=== PATIENT | female | born 1950 | race Caucasian/White ===

== ENCOUNTER → 2017-08-30 | Outpatient (CLI) | payer OTHER | LOC: BMCIMAGING 14:50 | PROVIDERS: ATTEND Internal Medicine | DX: Z12.31 Encounter for screening mammogram for malignant neoplasm of breast (principal) | CPT/HCPCS: G0202 ==

== ENCOUNTER → 2018-05-05 | Outpatient (CLI) | payer OTHER, MEDICARE | LOC: BHFA 09:00 | PROVIDERS: ATTEND Internal Medicine Cardiovascular Disease | DX: I47.2 Ventricular tachycardia (principal); Z95.810 Presence of automatic (implantable) cardiac defibrillator ==

== ENCOUNTER 2018-09-06 09:51 | Day surgery (SDC) | payer OTHER, MEDICARE ==
[2018-09-06] MEDS ORDERED: DIAZEPAM 5 MG TAB PO ONE (10:07)
[2018-09-06] MEDS ORDERED: NS 1,000 ML IV ONE (10:07)
[2018-09-06] MEDS ORDERED: BACITRACIN IRRIGATION/NS 50,000 UNITS/1,000 ML BTL IRR ONE (10:07)
[2018-09-06] MEDS ORDERED: diphenhydrAMINE 25 MG CAP PO ONE (10:07)
[2018-09-06 10:32] LABS: PLATELET COUNT 306 10^3/uL (150-400)
[2018-09-06 10:44] LABS: INR 0.87 (0.83-1.16)
[2018-09-06] MEDS ORDERED: VANCOMYCIN HCL/NORMAL SALINE 250 ML IV ONE (11:00)
--- NOTE | 2018-09-06 11:14 | PDGENHP ---
History & Physical Chief Complaint: Generator change History of Present Illness: History of VT, ICD generator at end of life. Ms. Knight presents today for generator change. Relevant Physical Exam: General: A&Ox4, no apparent distress. Respiratory: CTA. Cardiac: Regular rate and rhythm. Extremities: Normal exam, pulses 2+ bilaterally, no edema Cardiorespiratory Assessment: ICD generator change today.
[2018-09-06] MEDS ORDERED: BUPIVACAINE 0.75% 10 ML SDV ONE (11:54)
[2018-09-06] MEDS ORDERED: LIDOCAINE 1% 300 MG/30 ML SDV ONE (11:54)
--- NOTE | 2018-09-06 11:58 | PDANEPAE ---
ANE Past Medical History - Cardiovascular History Hx Hypertension: Yes Hx Arrhythmias: Yes Hx Chest Pain: No Hx Coronary Artery / Peripheral Vascular Disease: No Hx CHF / Valvular Disease: No Hx Palpitations: No Cardiovascular History Comment: h/o V-fib with no etiology s/p AICD - Pulmonary History Hx COPD: No Hx Asthma/Reactive Airway Disease: No Hx Recent Upper Respiratory Infection: No Hx Oxygen in Use at Home: No Hx Sleep Apnea: No - Endocrine History Hx Diabetes: No Hypothyroid: No Hyperthyroid: No Obesity: no - Renal History Hx Renal Disorders: No - Liver History Hx Hepatic Disorders: No - Chronic Pain History Chronic Pain: No ANE Review of Systems Review of Systems: - Exercise capacity Exercise capacity: >=4 METS - Pacemaker Pacemaker Type: Permanent Pacer/Defib Pacemaker [employer]: [employer] Pacemaker Mode: DDD Date Pacemaker Last Checked: a few months ago ANE Patient History - Allergies Allergies/Adverse Reactions: amiodarone [Amiodarone] Allergy (Severe, Verified 06/13/16 14:24) Other-Enter Comments latex [Latex] Allergy (Severe, Verified 06/22/10 08:52) Dyspnea piperacillin sodium [From Zosyn] Allergy (Unknown, Unverified 09/06/18 10:05) Rash tazobactam sodium [From Zosyn] Allergy (Unknown, Unverified 09/06/18 10:05) Rash - Home Medications Home Medications: Diltiazem HCl [Cartia XT 240mg] 240 mg PO DAILY 06/13/16 [Last Taken 06/12/16] Lisinopril [Zestril 10 mg (*)] 10 mg PO DAILY 06/13/16 [Last Taken 06/12/16] - NPO status NPO Status: no food or drink >8 hours - Anes Hx Anes Hx: no prior problems - Smoking Hx Smoking Status: Never smoked ANE Labs/Vital Signs - Labs Result Diagrams: 09/06/18 10:15 09/06/18 10:15 - Vital Signs Height: 165 cm Weight: 77.1 kg ANE Physical Exam - Airway Neck exam: FROM Mallampati Score: Class 2 Mouth exam: normal dental/mouth exam - Pulmonary Pulmonary: no respiratory distress - Cardiovascular Cardiovascular: regular rate and rhythym - ASA Status ASA Status: II ANE Anesthesia Plan Anesthesia Plan: GA with mask
[2018-09-06] MEDS ORDERED: PROPOFOL/EMULSION 500 MG/50 ML BOTTLE IV ONE (12:01)
[2018-09-06] MEDS ORDERED: fentaNYL 100 MCG/2 ML INJ ONE (12:30)
[2018-09-06] MEDS ORDERED: ePHEDrine SULFATE 25 MG/5 ML SYR ONE (12:45)
[2018-09-06] MEDS ORDERED: PHENYLEPHRINE HCL 100 MCG/ML SYR ONE (12:45)
[2018-09-06] MEDS ORDERED: NALOXONE HCL 0.4 MG/ML INJ IVP PRN (13:06)
[2018-09-06] MEDS ORDERED: fentaNYL 100 MCG/2 ML INJ IVP PRN (13:06)
[2018-09-06] MEDS ORDERED: METOCLOPRAMIDE 10 MG/2 ML VIAL IVP PRN (13:06)
[2018-09-06] MEDS ORDERED: NS 500 ML IV PRN (13:06)
[2018-09-06] MEDS ORDERED: LABETALOL HCL 20 MG/4 ML INJ IVP PRN (13:06)
[2018-09-06] MEDS ORDERED: MEPERIDINE 25 MG/0.5 ML AMP IVP PRN (13:06)
[2018-09-06] MEDS ORDERED: ALBUTEROL 3 ML DEYVIAL IH PRN (13:06)
[2018-09-06] MEDS ORDERED: PROMETHAZINE HCL 25 MG/ML INJ IVP PRN (13:06)
[2018-09-06] MEDS ORDERED: oxyCODONE IR 5 MG TAB PO PRN (13:06)
[2018-09-06] MEDS ORDERED: ACETAMINOPHEN 500 MG TAB PO PRN (13:06)
[2018-09-06] MEDS ORDERED: ONDANSETRON 4 MG/2 ML VIAL IVP PRN (13:06)
[2018-09-06] MEDS ORDERED: DEXAMETHASONE 4 MG/ML VIAL IVP PRN (13:06)
[2018-09-06] MEDS ORDERED: HYDROmorphONE/DILAUDID 2 MG/ML INJ IVP PRN (13:06)
[2018-09-06] MEDS ORDERED: PROPOFOL 200 MG/20 ML VIAL ONE (13:07)
--- NOTE | 2018-09-06 13:22 | EPPROC ---
Electrophysiology Procedure Note: PROCEDURE PERFORMED: 1. Explantation of an A-V Implantable Cardioverter Defibrillator 2. Implantation of an A-V Implantable Cardioverted Defibrillator 3. EP study induction of ventricular fibrillation and defibrillation testing INDICATION: ICD Generator at DENNY R sided Cardiomyopathy PROCEDURE NOTE: Patient presented to the cardiac catheterization laboratory in a fasting, postabsorptive state. Anesthesiologist administered sedation. The R infraclavicular area was prepped and draped in the usual sterile fashion. Lidocaine plus bupivacaine was used for local anesthesia. Using a combination of blunt and sharp dissection and electrocautery, the dissection was carried down to the prepectoral fascia and the existing ICD pocket was opened. The ICD generator was disconnected from the leads and the lead thresholds and impedance were checked. The ICD pocket was copiously irrigated with antibiotic solution. The pocket was again inspected for any bleeding. The leads were attached to the ICD securely. The ICD was inserted into the pocket and secured in place with a nonabsorbable suture. Defibrillation testing was not performed. The ICD pocket was closed in 3 layers with absorbable monocryl sutures and keren. Appropriate dressing was applied. The patient left the cardiac catheterization laboratory in stable condition. Serial Numbers: 1. Implanted Device: Biotronik Itrevia [id number] 2. Atrial Lead: Medtronic [id number] 3. Ventricular Lead: Medtronic [id number] Stimulation Thresholds & Impedance Measurements: 1. Atrial Lead 1.5 V 0.4 ms P 1.7 mV 388 ohm 2. Ventricular Lead 1.7 V 0.4 ms R 8.5 mV 375 ohm shock impedance 89 ohm Defibrillation testing: Not done Pacing Parameters: 1. Pacing mode: DDD-CLS 2. Lower rate: 50 ppm 3. Upper tracking rate: 130 ppm Tachycardia therapy parameters: VF zone : Detection 180 bpm ATP x 3 burst, ATP x 3 ramp, 20 J, 30 J, 40 J x 6 VT zone : Detection 222 bpm ATP x 1, 30 J, 40 J x 7 VT monitor zone 150 bpm Patient Problems: Problems Problem Status Onset Acute hepatitis, noninfective Acute Cholelithiasis Acute
--- NOTE | 2018-09-06 15:19 | CPEKG ---
Test Reason : OPEN Blood Pressure : / mmHG Vent. Rate : 065 BPM Atrial Rate : 063 BPM P-R Int : 141 ms QRS Dur : 089 ms QT Int : 437 ms P-R-T Axes : 058 061 047 degrees QTc Int : 455 ms Sinus rhythm No significant change from June 13, 2016 Confirmed by Graeme Camarena ([id number]) on 09/06/2018 3:19:42 PM Referred By: Confirmed By:Graeme Camarena
--- NOTE | 2018-09-06 16:05 | POSTANESTH ---
Post Anesthetic Evaluation Cardiovascular Status: Normal, Stable Respiratory Status: Normal, Stable Level of Consciousness/Mental Status: Can Participate in Eval Pain Control: Adequate, Prn Tx Ordered Nausea/Vomiting Control: Adequate, Prn Tx Ordered Complications Possibly Related to Anesthesia: None Noted
== END 2018-09-06 14:30 | disposition home or self-care (01) ==
LOC: FCATH 09:51
PROVIDERS: ATTEND Internal Medicine Cardiovascular Disease
DX: Z45.02 Encounter for adjustment and management of automatic implantable cardiac defibrillator (principal); I42.9 Cardiomyopathy, unspecified
CPT/HCPCS: C1721; J2370; J2704; J3010; J3370

== ENCOUNTER 2018-09-23 12:39 | Emergency (ER) | payer OTHER, MEDICARE ==
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
[2018-09-23 13:19] LABS: PLATELET COUNT 327 10^3/uL (150-400)
--- NOTE | 2018-09-23 14:43 | CPEKG ---
Test Reason : OPEN Blood Pressure : / mmHG Vent. Rate : 065 BPM Atrial Rate : 065 BPM P-R Int : 168 ms QRS Dur : 090 ms QT Int : 416 ms P-R-T Axes : 044 058 032 degrees QTc Int : 433 ms Atrial-paced rhythm Confirmed by Tabatha Guadarrama ([id number]) on 09/23/2018 2:42:40 PM Referred By: Confirmed By:Tabatha Guadarrama
[2018-09-23] MEDS ORDERED: IOPAMIDOL (ISOVUE 370) 100 ML BTL IV ONE (16:32)
[2018-09-23 17:30] VITALS: BP 130/84
== END 2018-09-23 17:26 | disposition home or self-care (01) ==
DX: R55 Syncope and collapse (principal); I10 Essential (primary) hypertension; I70.0 Atherosclerosis of aorta; I49.01 Ventricular fibrillation; Z95.0 Presence of cardiac pacemaker
CPT/HCPCS: 70450; 70496; 70498; 93005; 99285; Q9967; 84484-PO

== ENCOUNTER 2018-09-28 15:26 | Emergency (ER) | payer OTHER, MEDICARE ==
[2018-09-28 15:35] VITALS: BP 126/88
--- NOTE | 2018-09-28 15:50 | EDPHY ---
H & P Time Seen by Provider: 09/28/18 15:45 HPI/ROS: Chief complaint. Dizzy spells HPI. Patient is a 67-year-old female here with sense of near syncope. She was seen for same September 23 with chief complaint near syncope and weakness. She had nausea and headache. She has an AICD that was placed in 2003. The AICD was checked by [employer] and found to have no a arrhythmia. She had a normal head CT, CTA of head and neck. Today the patient was sitting at her desk and had sudden onset dizziness and then near-syncope. It lasted 2 hr use and she says she still does not feel right. She checked her blood pressure was higher than normal. She tells me was 158/108. She saw her PCP today. She does have some nausea. Since September 23 she saw Neurology PA who felt this was not neurologic. Patient complains also funny feeling in her chest however not pressure or discomfort or pain. No shortness of breath. No abdominal. No unusual leg pain or swelling ROS 10 systems were reviewed and negative with the exception of the elements mentioned in the history of present illness Past Medical/Surgical History: Ventricular fibrillation, AICD placed 1999 for in the battery was replaced in July. Also history of hypertension Social History: , nonsmoker, no alcohol Smoking Status: Never smoked Physical Exam: General Appearance: Alert pleasant well-developed female mild distress vital signs are stable Eyes: Pupils equal and round no pallor or injection. ENT, Mouth: Mucous membranes are moist. Respiratory: There are no retractions, lungs are clear to auscultation. Cardiovascular: Regular rate and rhythm. Gastrointestinal: Abdomen is soft and nontender, no masses, bowel sounds normal. Neurological: Awake and alert, sensory and motor exams grossly normal. Skin: Warm and dry, no rashes. Musculoskeletal: Neck is supple nontender. Extremities symmetrical, full range of motion. No unusual leg pain or swelling Psychiatric: Patient is oriented X 3, there is no agitation. Constitutional: Initial Vital Signs Temperature (C) 36.7 C 09/28/18 15:33 Heart Rate 92 09/28/18 15:33 Respiratory Rate 16 09/28/18 15:33 Blood Pressure 126/88 H 09/28/18 15:33 O2 Sat (%) 94 09/28/18 15:33 O2 Delivery Mode Room Air Allergies/Adverse Reactions: amiodarone [Amiodarone] Allergy (Severe, Verified 09/28/18 15:32) Other-Enter Comments latex [Latex] Allergy (Severe, Verified 09/28/18 15:32) Dyspnea piperacillin sodium [From Zosyn] Allergy (Unknown, Unverified 09/28/18 15:32) Rash tazobactam sodium [From Zosyn] Allergy (Unknown, Unverified 09/28/18 15:32) Rash Home Medications: Medication Instructions Recorded Diltiazem HCl [Cartia XT 240mg] 240 mg PO DAILY 06/13/16 Lisinopril [Zestril 10 mg (*)] 10 mg PO DAILY 06/13/16 Acetaminophen [Tylenol 325mg (*)] 650 mg PO Q4 PRN #0 tab 06/14/16 Diltiazem Xr [Dilacor Xr] 240 mg PO DAILY #0 cap 06/14/16 Lisinopril [Zestril 10 mg (*)] 10 mg PO DAILY #0 tab 06/14/16 Sennosides/Docusate Sodium 1 tab PO BID #30 tab 06/14/16 [Senokot-S] Aspirin 81mg (*) 09/23/18 Medical Decision Making Procedures: IV normal saline, monitor ED Course/Re-evaluation: I consulted discussed the case with Dr. Monroe patient's PCP. She would like the patient to be seen by Cardiology. I consulted and discussed case with Dr. Martinez for cardiology who sees the patient in the emergency department. While Dr. Martinez is examining the patient the patient has a run of tachycardia that he feels is pacer mediated. Pacer rep for cardiology comes and re-programs the patient's AICD. After a period of observation in the emergency department the patient has no symptoms. She feels comfortable going home. She will see Dr. Wharton for cardiology tomorrow. Patient and I discussed treatment plan including criteria for return importance of follow-up and further evaluation. She expresses understanding and agreement Differential Diagnosis: I considered a arrhythmia, acute coronary syndrome, CVA, cardiomyopathy - Data Points Laboratory Results: Laboratory Results 09/28/18 16:15 09/28/18 16:15 09/28/18 09/28/18 09/28/18 16:24 16:15 16:15 WBC 5.06 10^3/uL 10^3/uL (3.80-9.50) RBC 4.46 10^6/uL 10^6/uL (4.18-5.33) Hgb 14.3 g/dL g/dL (12.6-16.3) Hct 41.1 % % (38.0-47.0) MCV 92.2 fL fL (81.5-99.8) MCH 32.1 pg pg (27.9-34.1) MCHC 34.8 g/dL g/dL (32.4-36.7) RDW 12.4 % % (11.5-15.2) Plt Count 317 10^3/uL 10^3/uL (150-400) MPV 9.5 fL fL (8.7-11.7) Neut % (Auto) 54.5 % % (39.3-74.2) Lymph % (Auto) 34.6 % % (15.0-45.0) [place] % (Auto) 8.1 % % (4.5-13.0) Eos % (Auto) 1.4 % % (0.6-7.6) Baso % (Auto) 1.2 % % (0.3-1.7) Nucleat RBC Rel Count 0.0 % % (0.0-0.2) Absolute Neuts (auto) 2.76 10^3/uL 10^3/uL (1.70-6.50) Absolute Lymphs (auto) 1.75 10^3/uL 10^3/uL (1.00-3.00) Absolute Monos (auto) 0.41 10^3/uL 10^3/uL (0.30-0.80) Absolute Eos (auto) 0.07 10^3/uL 10^3/uL (0.03-0.40) Absolute Basos (auto) 0.06 10^3/uL 10^3/uL (0.02-0.10) Absolute Nucleated RBC 0.00 10^3/uL 10^3/uL (0-0.01) Immature Gran % 0.2 % % (0.0-1.1) Immature Gran # 0.01 10^3/uL 10^3/uL (0.00-0.10) Sodium 138 mEq/L mEq/L (135-145) Potassium 4.1 mEq/L mEq/L (3.5-5.2) Chloride 106 mEq/L mEq/L (97-110) Carbon Dioxide 24 mEq/l mEq/l (22-31) Anion Gap 8 mEq/L mEq/L (6-14) BUN 17 mg/dL mg/dL (7-23) Creatinine 0.8 mg/dL mg/dL (0.6-1.0) Estimated GFR > 60 Glucose 101 mg/dL H mg/dL (70-100) Calcium 9.1 mg/dL mg/dL (8.5-10.4) POC Troponin I 0.00 ng/mL ng/mL (0.00-0.08) Medications Given: Discontinued Medications Sodium Chloride (Ns) 1,000 mls @ 0 mls/hr IV EDNOW ONE; Wide Open PRN Reason: Protocol Stop: 09/28/18 16:03 Last Admin: 09/28/18 16:19 Dose: 1,000 mls Point of Care Test Results: Chemistry 09/28/18 16:24 POC Troponin I 0.00 ng/mL ng/mL (0.00-0.08) Departure - Departure Disposition: Home, Routine, Self-Care Clinical Impression: Palpitations, Near syncope Pacemaker complications Qualifiers: Encounter type: initial encounter Qualified Code(s): T82.9XXA - Unspecified complication of cardiac and vascular prosthetic device, implant and graft, initial encounter Condition: Good Instructions: Near Syncope (ED) Additional Instructions: Return tonight for worsening symptoms Follow-up with Dr. Wharton for cardiology tomorrow Referrals: Janneth Monroe MD [Primary Care Provider] - As per Instructions Preet Wharton MD [Medical Doctor] - 1 day without fail
[2018-09-28] MEDS ORDERED: NS 1,000 ML IV ONE (16:02)
[2018-09-28 16:30] LABS: PLATELET COUNT 317 10^3/uL (150-400)
--- NOTE | 2018-09-28 18:06 | PDCONSULT ---
Surveillance Systems Analyst Note: Cardiology consult: I was asked to see this patient regarding symptoms of episodic dizziness. She is typically followed as an outpatient by Dr. Erlin Wharton. 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 At that time, she had a dual-chamber [employer] ICD placed. This occurred back in [place]. Apparently she also had a severe reaction to amiodarone at that time. She moved to the local area here in 2004 where she established care with Dr. Smart. In 2009 she underwent a generator change. In late August 2018 she again had a generator change which was done with Dr. Gdoinez. She has not had any treated ventricular arrhythmias since device implantation. She states that she generally feels well. Beginning about a week after her generator change she began experiencing episodic symptoms of dizziness. These can be short episodes but sometimes last for very long periods of time up to several hours. They usually occur at rest and are not associated with symptoms of palpitations, chest pain or dyspnea. Because of these symptoms she came to the emergency department on September 23. At that time, she was evaluated and released. It was thought that her symptoms were neurologic. She was subsequently seen by Neurology where she was told that her symptoms were not in fact neurologic. Because of ongoing symptoms she came to the emergency department today. On arrival here she was hemodynamically stable in an atrially paced rhythm. She notes that she has not had any medication changes. She denies symptoms of orthostasis. She notes no systemic symptoms. She denies fever, chills and sweats. She notes no chest pain. As stated previously she denies palpitations. In the emergency department she was noted to have short episodes of wide complex tachycardia with the appearance of pacemaker mediated tachycardia. When in this arrhythmia she had reproducibility of her symptoms. Review of systems: A full 12 point review of systems was performed was otherwise negative. Past medical history hypertension, ventricular fibula ivette rest as described above, history of AICD implantation. Past surgical history defibrillator implantation as noted above, cholecystectomy , section, defibrillator generator change. Medications: Low-dose aspirin, diltiazem CD 200 40 mg daily, lisinopril 10 mg daily. Allergies: Amiodarone and codeine. Family history: Noncontributory. Physical examination she is afebrile and normotensive. She is well in appearance. Normocephalic atraumatic with anicteric scar pharynx unremarkable carotids are 2+ bilaterally with no carotid bruits is no jugular venous distension adenopathy or thyromegaly. Respiratory: She is breathing easily resting comfortably using no accessory muscles on auscultation she has clear lung gray bilaterally. Cardiac: She has an ICD in the right infraclavicular fossa. Regular rate and rhythm without murmurs gallops rubs abdomen: Normoactive bowel sounds no masses our pedis been a megaly nonpalpable aorta. Extremities: Warm and well perfused with no edema. Vasculature: 2+ radial dorsal pedal and posterior tibial pulses Impression: This is a 67-year-old female with a prior medical history as described above. 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 Plan: I will contact our device nurse to have her device interrogated. Will likely need to extend her PVARP in order to suppress this arrhythmia.
--- NOTE | 2018-09-28 22:38 | CPEKG ---
Test Reason : OPEN Blood Pressure : / mmHG Vent. Rate : 059 BPM Atrial Rate : 059 BPM P-R Int : 144 ms QRS Dur : 096 ms QT Int : 464 ms P-R-T Axes : 052 064 040 degrees QTc Int : 460 ms Sinus rhythm Confirmed by Graeme Henderson ([id number]) on 09/28/2018 10:38:18 PM Referred By: Confirmed By:Graeme Henderson
== END 2018-09-28 18:41 | disposition home or self-care (01) ==
DX: R55 Syncope and collapse (principal); R00.2 Palpitations; E86.9 Volume depletion, unspecified; Z95.810 Presence of automatic (implantable) cardiac defibrillator; Z90.49 Acquired absence of other specified parts of digestive tract
CPT/HCPCS: 84484-ER

== ENCOUNTER → 2018-09-29 | Outpatient (CLI) | payer OTHER, MEDICARE | LOC: BHFA 11:30 | PROVIDERS: ATTEND Internal Medicine Cardiovascular Disease | DX: I47.2 Ventricular tachycardia (principal); Z95.810 Presence of automatic (implantable) cardiac defibrillator ==